=== PATIENT | male | born 1965 | race Asian ===

== ENCOUNTER 2016-08-01 15:21 | Emergency (ER) | payer MEDICAID ==
[~2016-08-01] VITALS: Ht 167.6 cm; Wt 74.8 kg
[~2016-08-01 15:21] MED LIST: AMOXICILLIN500 MG ORAL; CLARITIN10 M2 ORAL; FLONASE16 GM NASAL; NEXIUM40 MG ORAL
[2016-08-01 15:27] VITALS: BP 124/83
[2016-08-01] MEDS ORDERED: LEVAQUIN500 MG ORAL (15:33)
--- NOTE | 2016-08-01 15:44 | Emergency Room Report ---
History of Present Illness General Chief Complaint: Pain Source: Patient Present Illness HPI 51 Yo Male presents to the ED C/O 01/22 Localized pain to the upper right gum is x1 month. Patient states that he is taken 2 courses of antibiotics both Levaquin and amoxicillin. Patient states he currently does not have a dentist and needs to find one. Patient denies fevers or chills patient reports pain unresponsive to Tylenol or Motrin. Patient denies trauma to the jaw or teeth prior to onset of pain. Patient denies history of immunocompromise denies history of smoking than socially. Patient denies weight loss, night sweats, easy bleeding from the gums. Patient states he does not take medication regularly and denies past medical history. Denies CP, Palpitations, LOC, AMS, dizziness, Changes in Vision, Sensation, paresthesias, or a sudden severe headache. Allergies: Coded Allergies: Dust (Unverified Allergy, Unknown, 11/21/13) Patient History Past Medical History: see triage record Past Surgical History: none Pertinent Family History: none Immunizations: UTD Reviewed Nursing Documentation: PMH: Agreed, PSxH: Agreed Nursing Documentation-PMH Past Medical History: No History, Except For Hx Cardiac Problems: No Hx Cancer: No Hx Gastrointestinal Problems: Yes - appendectomy History Of Psychiatric Problem: Yes - Anxiety, Depression Hx Neurological Problems: No Review of Systems All Other Systems: negative except mentioned in HPI Physical Exam Vital Signs Date Time Temp Pulse Resp B/P Pulse Ox O2 Delivery O2 Flow Rate FiO2 08/01/16 15:27 98.1 16 124/83 97 Room Air 08/01/16 15:27 81 Sp02 EP Interpretation: reviewed, normal General Appearance: no apparent distress, alert, GCS 15, non-toxic Head: normocephalic, atraumatic Eyes: bilateral eye PERRL, bilateral eye normal inspection ENT: hearing grossly normal, normal pharynx, no angioedema, normal voice, other - white ulcerative appearance to the upper gingiva with swelling on the right side, no appreciable tooth tenderness to percussion, no palpable fluctuance. Neck: full range of motion, supple/symm/no masses Respiratory: lungs clear, normal breath sounds, speaking full sentences Cardiovascular #1: regular rate, rhythm, no edema Musculoskeletal: back normal, gait/station normal, normal range of motion, non- tender Neurologic: alert, oriented x3, responsive, motor strength/tone normal, sensory intact, speech normal Psychiatric: judgement/insight normal, memory normal, mood/affect normal Skin: normal color, no rash, warm/dry, well hydrated Lymphatic: no adenopathy Medical Decision Making PA Attestation Dr. Whitehead is my supervising Physician whom patient management has been discussed with. Diagnostic Impression: Primary Impression: Gingivitis, acute ER Course 51 Yo Male presents to the ED C/O 01/22 Localized pain to the upper right gum is x1 month. Patient states that he is taken 2 courses of antibiotics both Levaquin and amoxicillin. Patient states he currently does not have a dentist and needs to find one. Patient denies fevers or chills patient reports pain unresponsive to Tylenol or Motrin. Patient denies trauma to the jaw or teeth prior to onset of pain. Patient denies history of immunocompromise denies history of smoking than socially. Patient denies weight loss, night sweats, easy bleeding from the gums. Patient states he does not take medication regularly and denies past medical history. Denies CP, Palpitations, LOC, AMS, dizziness, Changes in Vision, Sensation, paresthesias, or a sudden severe headache. Ddx considered but are not limited to dental abscess, oral cancer, gingivitis, gum abscess, tooth avulsion, oral thrush just to name a few. Vital signs: are WNL, pt. is afebrile H&PE are most consistent with gingivitis ORDERS: none required at this time, the diagnosis is clinical ED INTERVENTIONS: None required at this time. - D/w pt. that oral rinses and antifungal medication will be given. no response from previous abx treatment does not warrant additional abx at this time, PE does not suggest bacterial abscess. - D/w pt. importance of proper follow up with dentist, and provided pt. with list of free/reduced cost dental clinics. - pt. to return to ED with worsening or new symptoms. DISCHARGE: At this time pt. is stable for d/c to home. Will provide printed patient care instructions, and any necessary prescriptions. Care plan and follow up instructions have been discussed with the patient prior to discharge. Last Vital Signs Date Time Temp Pulse Resp B/P Pulse Ox O2 Delivery O2 Flow Rate FiO2 08/01/16 15:27 98.1 81 16 124/83 97 Room Air Disposition: HOME, SELF-CARE Condition: Stable Scripts Acetaminophen* (TYLENOL EXTRA STRENGTH*) 500 Mg Tablet 500 MG ORAL Q8H, #30 TAB 0 Refills Prov: Jackelyn Moralse 08/01/16 Nystatin* (NYSTATIN*) 100,000 Unit/1 Ml Oral.susp 5 ML ORAL FOUR TIMES A DAY for 14 Days, #280 ML Swish in the mouth and retain for as long as possible (several minutes) before swallowing Prov: Jackelyn Morales 08/01/16 Chlorhexidine Gluconate (Peridex) 15 Ml Mouthwash 15 ML MM BID, #240 ML Prov: Jackelyn Morales 08/01/16 Patient Instructions: Gingivitis, [id number] Additional Instructions: Take medications as directed. Follow up with PCP and DENTIST in 3-5 days Return sooner to ED if new symptoms occur, or current symptoms become worse. - Please note that this Emergency Department Report was dictated using [employer] bag packer technology software, occasionally this can lead to erroneous entry secondary to interpretation by the dictation equipment. Jackelyn Morales Aug 01, 2016 15:44
[2016-08-01] MEDS ORDERED: PERIDEX15 ML MM (16:14)
[2016-08-01] MEDS ORDERED: NYSTATIN100000 UN1 ORAL (16:14)
[2016-08-01] MEDS ORDERED: TYLENOL EXTRA500 MG ORAL (16:14)
[2016-08-01 16:26] VITALS: BP 124/83
== END 2016-08-01 16:26 | disposition home or self-care (01) ==
LOC: EMR 16:00
DX: K05.00 Acute gingivitis, plaque induced (principal); F41.9 Anxiety disorder, unspecified; F32.9 Major depressive disorder, single episode, unspecified
CPT/HCPCS: 99284